=== PATIENT | female | born 1980 | race American Indian/Alaskan Native ===

== ENCOUNTER 2021-01-21 21:02 | Emergency (ER) | payer SELFPAY ==
[2021-01-21 22:02] VITALS: BP 125/57
[2021-01-22 01:51] LABS: Basophils % (Auto) 0.7 % (0.0-1.8); Eosinophils % (Auto) 0.6 % (0.0-4.3); Hematocrit 39.6 % (30.3-42.9); Hemoglobin 13.6 gm/dl (10.1-14.3); Lymphocytes % (Auto) 30.8 % (13.4-35.0); Mean Corpuscular HGB Conc 34 % (30-34); Mean Corpuscular Volume 99 fl (79-97); Monocytes # (Auto) 0.5 K/mm3 (0.0-0.8); Monocytes % (Auto) 6.9 % (0.0-7.3); Platelet Count 275 K/mm3 (140-440); Red Cell Distribution Width 12.5 % (13.2-15.2)
[2021-01-22 02:13] LABS: Alanine Aminotransferase 11 units/L (7-56); Albumin 3.7 g/dL (3.9-5); Blood Urea Nitrogen 13 mg/dL (7-17); Calcium 8.9 mg/dL (8.4-10.2); Hemolysis Index 4
[2021-01-22 02:21] LABS: BUN/Creatinine Ratio 19
--- NOTE | 2021-01-22 03:53 | Ultrasound Report ---
TRANSABDOMINAL AND TRANSVAGINAL PELVIC ULTRASOUND INDICATION / CLINICAL INFORMATION: Pelvic pain and dysfunctional uterine bleeding. COMPARISON: None available. FINDINGS: Transabdominal: The uterus measures approximately 11.9 x 8.7 x 6.5 cm. The endometrial stripe is not well seen. The ovaries are not identified. There is no evidence of adnexal mass or free fluid. The ur inary bladder is not well seen. Transvaginal: The uterus measures approximately 10.1 x 6.2 x 7.5 cm. There is a 4.8 cm fibroid in the posterior fundus and there is a 2 cm fibroid in the anterior uterine body. The endometrial stripe me asures 3.9 mm AP. The right ovary measures 2.7 x 1.5 x 3.7 cm and demonstrates normal blood flow on Doppler exam. The l eft ovary is not seen. There is no evidence of adnexal mass or free fluid. IMPRESSION: 2 uterine fibroids, the largest of which measures 4.8 cm. Signer Name: Kennedy Lopez MD Signed: 01/22/2021 3:49 AM Workstation Name: [id number]
--- NOTE | 2021-01-22 04:01 | Emergency Department Report ---
ED Female HPI - General Chief complaint: Back Pain/Injury Stated complaint: LEFT SIDE PAIN Time Seen by Provider: 01/22/21 00:22 Source: patient Mode of arrival: Ambulatory Limitations: No Limitations - History of Present Illness Initial comments: 40-year-old [place] female presents to the emergency department complaining of a few month history of dysmenorrhea and abnormal menstrual cycles. States she has been missing her periods by several days which is followed by periods Menorrhagia lasting about a week. States is the third consecutive time it is happening and the pain to the pelvic area grew more intense so she came to see if her uterine fibroids have reemerged. She reports no dysuria, no fever, chills, sweats. No chest pain, palpitations no nausea vomiting. She denies possibility of MD Complaint: vaginal bleeding Location: suprapubic Radiation: non-radiating Severity: mild, moderate Quality: dull, aching Consistency: constant Improves with: none Worsens with: movement Are you Now?: No Associated Symptoms: vaginal bleeding. denies: nausea/vomiting, headaches, hematuria, rash, shortness of breath, syncope - Related Data Previous Rx's Medication Instructions Recorded Last Taken Type Ketorolac [Toradol] 10 mg PO Q6H PRN #14 tablet 01/22/21 Unknown Rx ED Review of Systems ROS: Stated complaint: LEFT SIDE PAIN Other details as noted in HPI Comment: All other systems reviewed and negative ED Past Medical Hx - Past Medical History Previous Medical History?: Yes Hx Seizures: Yes - Surgical History Past Surgical History?: No - Social History Smoking Status: Former Smoker Substance Use Type: Alcohol - Medications Home Medications: Home Medications Medication Instructions Recorded Confirmed Last Taken Type Ketorolac [Toradol] 10 mg PO Q6H PRN #14 tablet 01/22/21 Unknown Rx ED Physical Exam - General Limitations: No Limitations General appearance: alert, in no apparent distress - Head Head exam: Present: atraumatic, normocephalic - Eye Eye exam: Present: normal appearance, PERRL, EOMI Pupils: Present: normal accommodation - ENT ENT exam: Present: normal exam, mucous membranes moist - Neck Neck exam: Present: normal inspection, full ROM. Absent: tenderness, lymphadenopathy - Respiratory Respiratory exam: Present: normal lung sounds bilaterally. Absent: respiratory distress, wheezes, rales, accessory muscle use, decreased breath sounds - Cardiovascular Cardiovascular Exam: Present: regular rate, normal rhythm. Absent: systolic murmur, diastolic murmur, rubs, gallop - GI/Abdominal GI/Abdominal exam: Present: soft, tenderness, normal bowel sounds. Absent: guarding, hyperactive bowel sounds, hypoactive bowel sounds, organomegaly, mass - Extremities Exam Extremities exam: Present: normal inspection - Back Exam Back exam: Present: normal inspection - Neurological Exam Neurological exam: Present: alert, oriented X3 - Psychiatric Psychiatric exam: Present: normal affect, normal mood - Skin Skin exam: Present: warm, dry, intact, normal color. Absent: rash ED Course Vital Signs 01/21/21 22:00 Temperature 97.7 F Pulse Rate 75 Respiratory 18 Rate Blood Pressure 125/57 O2 Sat by Pulse 100 Oximetry ED Medical Decision Making - Lab Data Result diagrams: 01/22/21 01:35 01/22/21 01:35 - Radiology Data Radiology results: report reviewed [address] [place] [id number] Ultrasound Report Signed Patient: MOLLY LOVE MR#: [id number] : 1980 Acct:[id number] Age/Sex: 40 / F ADM Date: 01/21/21 Loc: ED Attending Dr: Ordering Physician: JACEY SWEET Date of Service: 01/22/21 Procedure(s): US transvaginal Accession Number(s): [id number] cc: JACEY SWEET TRANSABDOMINAL AND TRANSVAGINAL PELVIC ULTRASOUND INDICATION / CLINICAL INFORMATION: Pelvic pain and dysfunctional uterine bleeding. COMPARISON: None available. FINDINGS: Transabdominal: The uterus measures approximately 11.9 x 8.7 x 6.5 cm. The endometrial stripe is not well seen. The ovaries are not identified. There is no evidence of adnexal mass or free fluid. The urinary bladder is not well seen. Transvaginal: The uterus measures approximately 10.1 x 6.2 x 7.5 cm. There is a 4.8 cm fibroid in the posterior fundus and there is a 2 cm fibroid in the anterior uterine body. The endometrial stripe measures 3.9 mm AP. The right ovary measures 2.7 x 1.5 x 3.7 cm and demonstrates normal blood flow on Doppler exam. The left ovary is not seen. There is no evidence of adnexal mass or free fluid. IMPRESSION: 2 uterine fibroids, the largest of which measures 4.8 cm. Signer Name: Kennedy Lopez MD Signed: 01/22/2021 3:49 AM Workstation Name: [id number] Transcribed By: RT Dictated By: Kennedy Lopez MD Electronically Authenticated By: Kennedy Lopez MD Signed Date/Time: 01/22/21348 DD/ 4 Critical care attestation.: If time is entered above; I have spent that time in minutes in the direct care of this critically ill patient, excluding procedure time. ED Disposition Clinical Impression: Dysmenorrhea, Leiomyoma of body of uterus, Menorrhagia Disposition: - TO HOME OR SELFCARE Is pt being admited?: No Does the pt Need Aspirin: No Condition: Stable Instructions: Abnormal Uterine Bleeding, Uterine Fibroids, Dysmenorrhea, Menorrhagia Prescriptions: Ketorolac [Toradol] 10 mg PO Q6H PRN #14 tablet PRN Reason: Pain Referrals: [facility] [Primary Care Provider] - 3-5 Days [facility] [Provider Group] - 3-5 Days
== END 2021-01-22 04:30 | disposition home or self-care (01) ==
LOC: ED 21:02
DX: N94.6 Dysmenorrhea, unspecified (principal); D25.9 Leiomyoma of uterus, unspecified; N92.0 Excessive and frequent menstruation with regular cycle; G40.909 Epilepsy, unspecified, not intractable, without status epilepticus; Z87.891 Personal history of nicotine dependence; Z79.899 Other long term (current) drug therapy
CPT/HCPCS: 36415; 76830; 76856; 80053; 85025